=== PATIENT | female | born 2000 | race African-American/Black ===

== ENCOUNTER 2020-05-01 18:15 | Emergency (ER) | payer BC ==
[~2020-05-01] VITALS: Ht 177.8 cm; Wt 136.1 kg
[2020-05-01 19:45] LABS: ABSOLUTE BASOPHILS 0.1 thou/uL (0.0-0.2); ABSOLUTE EOSINOPHILS 0.2 thou/uL (0.0-0.7); ABSOLUTE LYMPHOCYTES 3.9 thou/uL (0.8-5.3); ABSOLUTE MONOCYTES 0.5 thou/uL (0.0-1.2); ABSOLUTE NEUTROPHILS 2.5 thou/uL (1.6-8.1); BASOPHILS 1.1 %; EOSINOPHILS 2.6 %; HEMOGLOBIN 12.3 gm/dL (12.0-15.0); LYMPHOCYTES 53.6 %; MCH 26.4 pg (26.0-34.0); MCHC 32.3 g/dL (28.0-37.0); MCV 81.5 fL (80.0-100.0); MONOCYTES 7.6 %; MPV 8.4 fl. (7.2-11.1); NUCLEATED RBCS 0 /100WBC; PLATELET COUNT* 203 thou/uL (150-400); POLYS 35.1 %; RBC 4.66 mil/uL (4.20-5.00); RDW-CV 14.2 % (10.5-14.5); WBC 7.3 thou/uL (4.0-11.0)
[2020-05-01 19:46] LABS: URINE BILIRUBIN NEGATIVE (Negative); URINE BLOOD NEGATIVE (Negative); URINE CLARITY CLEAR; URINE COLOR YELLOW; URINE GLUCOSE-RANDOM NEGATIVE (Negative); URINE KETONES NEGATIVE (Negative); URINE LEUKOCYTES-REFLEX NEGATIVE (Negative); URINE NITRITE-REFLEX NEGATIVE (Negative); URINE PROTEIN NEGATIVE (Negative); URINE SPECIFIC GRAVITY 1.025 (1.005-1.030); URINE UROBILINOGEN 0.2 E.U./dl (0.2-1.0)
[2020-05-01 19:50] LABS: CALCIUM 8.7 mg/dL (8.5-10.1); CREATININE 1.1 mg/dL (0.6-1.3); POTASSIUM 3.8 mmol/L (3.5-5.1)
[2020-05-01 19:54] LABS: ALBUMIN 3.4 g/dL (3.4-5.0); TOTAL BILIRUBIN 0.2 mg/dL (<0.1-1.0); TOTAL PROTEIN 6.8 g/dL (6.4-8.2)
[2020-05-01] MEDS ORDERED: ZOFRAN ODT4 MG DISSOLVE (21:05)
[2020-05-01] MEDS ORDERED: PROTONIX40 M1 PO (21:05)
[2020-05-01 21:21] VITALS: BP 122/68
--- NOTE | 2020-05-02 10:41 | EKG ---
[place] [address] ELECTROCARDIOGRAM REPORT Name: HARVEY DAVIS Room: [facility]#: [id number] Admission: 05/01/20 Attend Phys: Discharge: 05/01/20 Date of : 89 Date of Service: 05/01/201925 Report #: [id number] THIS REPORT FOR: //name// [facility] ED Test Date: 2020-05-01 Test Time: 19:26:33 Pat Name: HARVEY DAVIS Department: Room: Gender: F [employer] Operator: DG : 2000 Requested By: Juventino Glover Order Number: [id number] MD: Corey Correa Measurements Intervals [place] Rate: 68 P: 14 MI: 202 QRS: 29 QRSD: 98 T: 6 QT: 392 QTc: 417 Interpretive Statements Sinus rhythm Borderline prolonged MI interval No previous ECG available for comparison Electronically Signed On 05-02-2020 10:41:00 CDT by Corey Correa [email or web address] <ELECTRONICALLY SIGNED> By: Corey Correa MD, [facility] 05/02/20 1041 25 25 Corey Correa MD, FACC /EPI
== END 2020-05-01 21:21 | disposition home or self-care (01) ==
LOC: M.ERS 18:15
PROVIDERS: Emergency Medicine Emergency Medical Services
DX: R10.13 Epigastric pain (principal); R11.2 Nausea with vomiting, unspecified